=== PATIENT | male | born 1945 | race Caucasian/White ===

== ENCOUNTER 2023-12-06 15:20 | Outpatient (CLI) | payer MEDICARE, SELFPAY ==
--- NOTE | 2023-12-06 15:27 | XR_ITS ---
FINAL REPORT CLINICAL HISTORY: left hip pain; chronic COMPARISON: None FINDINGS: LEFT HIP: Two views of the left hip and an AP view of the pelvis demonstrate no acute fracture or dislocation. There is mild degenerative change of the left hip. The visualized bony structures are well aligned. No soft tissue abnormality is seen. There is moderate degenerative change in lumbar spine. IMPRESSION: Degenerative changes without acute bony abnormality. Reviewed, Interpreted and Dictated by Manolo Addison III, MD Transcribed by Nery Phillips Authenticated and . [facility]
== END 2023-12-06 23:59 | disposition home or self-care (01) ==
LOC: RAD 15:25
PROVIDERS: PCP Nurse Practitioner Family; Visit Provider Nurse Practitioner Family
DX: M25.552 Pain in left hip (principal)
CPT/HCPCS: 73502

== ENCOUNTER 2025-01-01 12:02 | Outpatient (CLI) | payer MEDICARE, SELFPAY ==
[2025-01-01 16:27] LABS: Hematocrit 43.2 % (42.0-52.0); Hemoglobin 14.1 g/dL (14.1-18.0); Immature Granulocytes % 0.1 %; Mean Corpuscular HGB Conc 32.6 g/dL (31.8-35.4); Mean Corpuscular Hemoglobin 30.0 pg (27.0-31.2); Mean Corpuscular Volume 91.9 fl (80-94); Nucleated Red Blood Cells % 0 %; Platelet Count 179 K/mm3 (142-424); Red Blood Count 4.70 M/mm3 (4.60-6.20); Red Cell Distribution Width-SD 46.0 fL; White Blood Count 6.8 K/mm3 (4.8-10.8)
[2025-01-01 16:43] LABS: Alanine Aminotransferase 25 U/L (12-78); Albumin Level 4.3 g/dl (3.5-5.0); Albumin/Globulin Ratio 1.8 (1.1-1.8); Alkaline Phosphatase 87 U/L (38-126); Anion Gap 14.2 mEq/L (5-15); Aspartate Amino Transferase 34 U/L (17-59); Bilirubin,Total 0.5 mg/dl (0.2-1.3); Blood Urea Nitrogen 21 mg/dl (9-20); Calcium 9.2 mg/dl (8.4-10.2); Carbon Dioxide 26 mmol/L (22.0-30.0); Chloride 105 mmol/L (98-107); Cholesterol 110 mg/dl (140-200); Creatinine,Serum 0.90 mg/dl (0.66-1.25); Estimated Glomerular Filt Rate 82 ml/min (>60); GFR (African American) 99 ML/MIN (>60); Globulin 2.4 g/dL (1.3-3.2); Glucose 90 mg/dl (74-100); HDL Cholesterol 44 mg/dl (40-60); Magnesium 2.0 mg/dl (1.6-2.3); Potassium 4.2 mmoL/L (3.5-5.1); Sodium 141 mmol/L (136-145); Total Protein,Serum 6.7 g/dl (6.3-8.2); Triglycerides 88 mg/dl (30-150)
[2025-01-01 17:30] LABS: Hepatitis C Ab Qual. W/ RFX NEGATIVE (Negative)
[2025-01-01 19:57] LABS: Thyroid Stimulating Hormone 1.32 uIU/mL (0.465-4.68)
--- OUTSIDE RECORDS SUMMARY | 2025-01-03 10:02 | XMS_ITS | Clinical Summary ---
Author Organization Healthcare Address [address] [place] [address] Care Team Providers Care Thermocouple Tester Name Role Phone Lien Reyes MD Primary Care Provider [phone] Allergies No known active allergies Medications aspirin 81 MG EC tablet Take 1 tablet (81 mg) by mouth 1 (one) time each day. 06/28/2013 Active albuterol 108 (90 Base) MCG/ACT inhaler Inhale 2 puffs every 4 (four) hours if needed. 11/05/2020 Active cholecalciferol (Vitamin D-3) 25 MCG (1000 UT) tablet Take 1 tablet (1,000 Units) by mouth 1 (one) time each day. Active cinnamon 500 MG capsule Take 1 capsule (500 mg) by mouth 1 (one) time each day. 06/28/2013 Active furosemide (Lasix) 40 MG tablet Take 1 tablet (40 mg) by mouth 1 (one) time each day in the morning. 11/03/2020 Active Multiple Vitamins-Minera ls (Oncovite) tablet Take 1 tablet by mouth 1 (one) time each day. Active potassium chloride CR (Klor-Con M10) 10 MEQ ER tablet Take 1 tablet (10 mEq) by mouth 1 (one) time each day. Active testosterone (Androgel) 12.5 MG/ACT (1%) gel Place on the skin. Active Adalimumab 40 MG/0.4ML Pen-injector Kit Inject under the skin. 10/21/2021 Active HYDROcodone-kaycee taminophen (Chester) 5-325 MG tablet Take 1 tablet (5 mg of hydrocodone) by mouth 1 (one) time each day. 10/12/2021 Active meloxicam (Mobic) 7.5 MG tablet 11/09/2021 Active cetirizine (ZyrTEC) 10 MG tablet Take 1 tablet (10 mg) by mouth. 08/11/2021 Active guaiFENesin (Mucinex) 600 MG 12 hr tablet Take 1 tablet (600 mg) by mouth every 12 (twelve) hours. 08/11/2021 Active metoprolol succinate XL (Toprol-XL) 50 MG 24 hr tablet Take 0.5 tablets (25 mg) by mouth. 08/11/2021 Active metoprolol succinate XL (Toprol-XL) 25 MG 24 hr tablet Take 1 tablet (25 mg) by mouth 1 (one) time each day. 08/19/2021 Active rosuvastatin (Crestor) 20 MG tablet Take 1 tablet (20 mg) by mouth 1 (one) time each day. 09/21/2021 Active rosuvastatin (Crestor) 40 MG tablet Take 0.5 tablets (20 mg) by mouth. 08/11/2021 Active Active Problems Problem Noted Date Diagnosed Date Adenomatous polyp of colon 11/12/2021 Overview (11/12/2021): Nov 23, 2020 Entered By: XAVIER SAMSON Comment: TAs resected October 2020 -- repeat cscope in 7 yrs (10/2027). 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 06/19/2013 Nasal turbinate hypertrophy 06/19/2013 Immunizations Immunization Administration Dates Next Due Moderna COVID-19 Vaccine (Pipeline Controller) 12+ years 09/2020,10/02/2020 Family History Medical History Relation Name Comments Cataracts Father Lung cancer Father Cataracts Mother Lung cancer Sister Relation Name Status Comments Father Mother Sister Social History Tobacco Use Types Packs/Day Years Used Date Smoking Tobacco: Former Smokeless Tobacco: Never Alcohol Use Standard Drinks/Week Comments Never 0 (1 standard drink = 0.6 oz pur e alcohol) Sex and Gender Information Value Date Recorded Sex Assigned at Not on file Legal Sex Male 6:24 PM EDT Gender Identity Not on file Sexual Orientation Not on file Last Filed Vital Signs Vital Sign Reading Time Taken Comments Blood Pressure 160/82 11/14/2022 11:03 AM EDT Pulse 86 11/14/2022 11:03 AM EDT Temperature - - Respiratory Rate 18 11/14/2022 11:03 AM EDT Oxygen Saturation 98% 11/14/2022 11:03 AM EDT Inhaled Oxygen Concentration - - Weight 108 kg (238 lb 1.6 oz) 11/14/2022 11:03 A M EDT Height 180.3 cm (5' 11 ) 11/14/2022 11:03 AM EDT Body Mass Index 33.21 11/14/2022 11:03 AM EDT Plan of Treatment Health Maintenance Due Date Last Done Comments [facility]-Depression Screening 1945 [facility]-Medicare Annual Wellness (AWV) 1945 [facility]-Infant/Child/Adol SDOH Screenings 1945 [facility]- SDOH Screenings 1964 [facility]-Adult SDOH Screenings 1964 [facility]-Pneumococcal Vaccine: 50 + Years (1 of 1 - PCV) 1996 [facility]-Zoster Vaccines (1 of 2) 1996 [facility]-RSV Vaccine: 60+ Years o r (1 - 1-dose 75+ series) 2021 [id number] Vaccine (3 - season) 2023 11/03/2020, 10/02/2020 [facility]-Influenza Vaccine (#1) 2024 [facility]-DTaP,Tdap,and Td Vaccine s (2 - Td or Tdap) 06/06/2032 06/06/2022 [facility]-Hepatitis C Screening Completed 07/17/2020 [facility]-Obesity Intervention Completed 11/14/2022 HPV Vaccines Aged Out No longer eligi ble based on patient's age to complete this topic [facility]-HIB Vaccines Aged Out No longer e ligible based on patient's age to complete this topic [facility]-Hepatitis A Vaccines Aged Out No longer eligible based on patient's age to complete this topic [facility]-IPV Vaccines Aged Out No longer e ligible based on patient's age to complete this topic [facility]-Rotavirus Vaccines Aged Out No lo nger eligible based on patient's age to complete this topic Procedures Procedure Name Priority Date/Time Associated Diagnosis Comments HEPATITIS C ANTIBODY W/REFLEX TO HCV QUANT PCR Routine 07/17/2020 4:19 PM EDT from Last 3 Months or Most Recently Relevant to Health Maintenance Results * Hepatitis C Antibody (07/17/2020 4:19 PM EDT) Hepatitis C Antibody NEGATIVE Reference Range: Negative SUNQUEST 07/17/2020 4:19 PM EDT 07/17/2020 6:15 PM EDT Bouchra Hagan MD LAB BLOOD ORDERABLES Final Re sult SUNQUEST from Last 3 Months or Most Recently Relevant to Health Maintenance Insurance [employer] MEDICARE [facility] Care Teams Thermocouple Tester Relationship Specialty Start Date End Date Lien Reyes MD [address] [place] [id number] PCP - General 11/12/21
--- OUTSIDE RECORDS SUMMARY | 2025-01-03 10:02 | XMS_ITS | Clinical Summary ---
Author Organization [facility] Address [address] [place] [id number] Care Team Providers Care Instrument Man Name Role Phone Lien Reyes MD Primary Care Provider [phone] Source Comments This information has been disclosed to you from confidential records protectedfrom disclosure by state law. You shall make no further disclosure of thisinformation without the specific, written, and informed release of theindividual to whom it pertains, or as otherwise permitted by law. A generalauthorization for the release of medical or other information is not sufficientfor the purposes of therelease of HIV test results or diagnoses. [id number] Allergies No known active allergies Medications olmesartan (BENICAR) 20 MG tablet Take 20 mg by mouth daily. Active furosemide (LASIX) 40 MG tablet Take 40 mg by mouth daily. Active testosterone (ANDROGEL) 1.25 gram/ actuation (1 %) GlPm Place onto the skin. Active levothyroxine (SYNTHROID, LEVOTHROID) 75 MCG tablet Take 75 mcg by mouth daily. Active simvastatin (ZOCOR) 40 MG tablet Take 40 mg by mouth at bedtime. Active potassium chloride SA (KLOR-CON M10) 10 MEQ tablet Take 10 mEq by mouth daily. Active cholecalciferol , vitamin D3, 1000 units tablet Take 1,000 Units by mouth daily. Active glucosamine-cho ndroitin 500-400 mg tablet Take 1 tablet by mouth 3 times a day. Active coffee extract (GREEN COFFEE LEVIN) 400 mg Tab Take by mouth. Active multivitamin (THERAGRAN) tablet Take 1 tablet by mouth daily. Active aspirin 81 MG EC tablet Take 1 tablet (81 mg total) by mouth daily. 30 tablet 06/28/2013 Active cinnamon bark (CINNAMON) 500 mg capsule Take 500 mg by mouth daily. 30 capsule 06/28/2013 Active mometasone (NASONEX) 50 mcg/actuation nasal spray 2 sprays by Nasal route daily. 17 g 06/28/2013 Active cephALEXin (KEFLEX) 500 MG capsule Take 1 capsule (500 mg total) by mouth 3 times a day. 21 capsule 0 06/20/2013 Active HYDROcodone-kaycee taminophen (NORCO) 5-325 mg per tablet Take 1 tablet by mouth every 4 hours as needed for Pain. 20 tablet 0 06/20/2013 Active Active Problems Problem Noted Date Diagnosed Date Nasal septal deviation 06/19/2013 Nasal turbinate hypertrophy 06/19/2013 Social History Tobacco Use Types Packs/Day Years Used Date Smoking Tobacco: Former Alcohol Use Standard Drinks/Week Comments No 0 (1 standard drink = 0.6 oz pur e alcohol) Sex and Gender Information Value Date Recorded Sex Assigned at Not on file Legal Sex Male 9:42 PM EST Gender Identity Not on file Sexual Orientation Not on file Last Filed Vital Signs Vital Sign Reading Time Taken Comments Blood Pressure 140/78 06/26/2013 3:16 PM EST Pulse 84 06/26/2013 3:16 PM EST Temperature 37.4 C (99.3 F) 06/26/2013 3:16 PM EST Respiratory Rate 20 06/26/2013 3:16 PM EST Oxygen Saturation 94% 06/20/2013 2:08 PM EST Inhaled Oxygen Concentration 94% 06/20/2013 2 :08 PM EST Weight 99.3 kg (219 lb) 06/26/2013 3:16 PM EST Height 185.4 cm (6' 1 ) 06/26/2013 3:16 PM EST Body Mass Index 28.89 06/26/2013 3:16 PM EST Plan of Treatment Not on file Insurance [employer] PPO MEDICARE Care Teams Instrument Man Relationship Specialty Start Date End Date Lien Reyes MD [address] [place] [phone] PCP - General Family Medicine 06/20/13
== END 2025-01-01 23:59 ==
LOC: LAB.DROPOF 01-03 09:59
PROVIDERS: PCP Nurse Practitioner Family; Visit Provider Nurse Practitioner Family
DX: E78.5 Hyperlipidemia, unspecified (principal); I10 Essential (primary) hypertension; Z11.4 Encounter for screening for human immunodeficiency virus [HIV]; Z11.59 Encounter for screening for other viral diseases; Z12.5 Encounter for screening for malignant neoplasm of prostate
CPT/HCPCS: 80053; 80061; 83735; 84443; 85025; 86803; 87389; G0103